=== PATIENT | female | born 1940 | race Caucasian/White ===

== ENCOUNTER → 2017-10-16 | Outpatient (CLI) | payer MEDICARE, BC ==
[~2017-10-16] MED LIST: HYDACE5 PO; HYDCHL25 PO; LEVSOD112 PO; LOSA50 PO; MAGOXI400 PO; MULVITMIND PO; OXYACE5T PO
[2017-10-18 12:10] LABS: HPV Genotype 16 Not Detected (NOTDET); HPV Genotype 18 Not Detected (NOTDET)
[2017-10-18 13:49] LABS: HPV High Risk Other Not Detected (NOTDET)
== END | disposition home or self-care (01) ==
LOC: LAB SHORT 14:38 → LAB 14:38
PROVIDERS: Obstetrics & Gynecology
DX: Z01.419 Encounter for gynecological examination (general) (routine) without abnormal findings (principal)
CPT/HCPCS: 87624; G0123

== ENCOUNTER 2019-05-06 03:09 | Emergency (ER) | payer MEDICARE, BC ==
[~2019-05-06] VITALS: Ht 170.2 cm; Wt 61.2 kg
[2019-05-06] MEDS ORDERED: LATANOPROST 0.7.5 ML BOTHEYES (03:27)
[2019-05-06] MEDS ORDERED: Aspir 8181 MG PO (03:28)
[2019-05-06] MEDS ORDERED: LOSARTAN-HCTZ1 EAC1 PO (03:29)
[2019-05-06] MEDS ORDERED: ACET500 PO (03:29)
[2019-05-06] MEDS ORDERED: ASCO500 PO (03:30)
[2019-05-06] MEDS ORDERED: Garlic1 EAC1 PO (03:30)
[2019-05-06] MEDS ORDERED: ONE-DAILY MULT1 EACH PO (03:30)
[2019-05-06] MEDS ORDERED: Fish Oil Conc1000 MG PO (03:30)
[2019-05-06 03:55] LABS: Calcium, Ionized (POC) 1.18 mmol/L (1.10-1.46); Chloride (POC) 103 mmol/L (98-108); Creatinine (POC) 0.7 mg/dL (0.6-1.0); Glucose (ISTAT POC) 104 mg/dL (70-99); Hemoglobin (POC) 15.3 g/dL (12.0-16.0); Potassium (POC) 3.1 mmol/L (3.5-5.5); Sodium (POC) 143 mmol/L (135-148); Total CO2 (POC) 29 mmol/L (21-32)
== END 2019-05-06 04:30 | disposition home or self-care (01) ==
LOC: ER 03:09
PROVIDERS: Emergency Medicine
DX: R00.2 Palpitations (principal); Z88.8 Allergy status to other drugs, medicaments and biological substances; Z88.6 Allergy status to analgesic agent; Z88.1 Allergy status to other antibiotic agents; Z79.899 Other long term (current) drug therapy; Z79.82 Long term (current) use of aspirin; F17.200 Nicotine dependence, unspecified, uncomplicated; E03.9 Hypothyroidism, unspecified; I10 Essential (primary) hypertension
CPT/HCPCS: 36415; 80047; 85014; 93005; 93010; 99283-25

== ENCOUNTER 2020-04-22 08:44 | Day surgery (SDC) | payer MEDICARE, BC ==
[~2020-04-22] VITALS: Ht 167.6 cm; Wt 64.0 kg
[~2020-04-22 08:44] MED LIST changes: +ACET500 PO; +AMLO5 PO; +ASCO500 PO; +Aspir 8181 MG PO; +Fish Oil Conc1000 MG PO; +Garlic1 EAC1 PO; +LATANOPROST 0.7.5 ML BOTHEYES; +LOSARTAN-HCTZ1 EAC1 PO; +ONE-DAILY MULT1 EACH PO
[2020-04-22] MEDS ORDERED: CLON.1 PO (09:36)
--- NOTE | 2020-04-22 16:23 | NUR ---
SHIFT NOTE PT ARRIVED THIS AFTERNOON WITH A LT CHEST WALL DUAL CHAMBER PACEMAKER PLACED R/T COMPLICATIONS OF SICK SINUS SYNDROME. PT ARRIVES A/O O X3, [facility] DOES HAVE HEARING AIDS BUT STS THEY ARE NOT HELPING A GREAT DEAL. SLING IS PLACED UPON ARRIVAL TO ICU, PT IS INSTRUCTED ON NOT USING HER LT ARM TO ALLOW IT TO REST IN SLING WHICH SHE EXPRESSED AN UNDERSTANDING. PT IS 100% PACED ON MONITOR UPON ARRIVAL. PRESSURE DRESSING REMAINS INTACT AND IN PLACE WITHOUT ANY BLEEDING NOTED. PT WAS TREATED ONCE FOR PAIN TO SURGICAL SITE. PT WAS ALSO TREATED WITH CLONIDINE FOR HTN SHE DID NOT TAKE HER MORNING DOSE
--- NOTE | 2020-04-22 21:15 | NUR ---
ASSUMPTION OF CARE PT AWAKE IN BED, ORIENTED x4, O2 SATURATIONS>90% ON RA, MONITOR SHOWS PACED RHYTHM WITH HR 60'S, BP STABLE. PT DENIES CP, REPORTS PAIN TO R SHOULDER MUCH IMPROVED. PT DENIES GI/ ISSUES AT THIS TIME. PRESSURE DRESSING TO L CHEST WALL C/D/I. PT SBA TO BSC. CALL LIGHT WITHIN REACH, PT USING APPROPRIATELY.
--- NOTE | 2020-04-23 06:52 | NUR ---
SHIFT SUMMARY PT AWAKE FOR MOST OF NIGHT, REMAINS ORIENTED x4, O2 SATURATIONS> 90% ON RA, MONITOR SHOWS PACED RHYTHM, PT REPORTED INCREASED MIDSTERNAL CHEST PAIN/PRESSURE THIS SHIFT, EKG COMPLETED, NEW ORDERS FOR 2mg MORPHINE FROM DR MARIO WITH GOOD EFFECT. SOME HYPOTENSION NOTED WHILE PT SLEEPING. L ARM REMAINED IN SLING T/O NIGHT. PT DENIES GI/ ISSUES.
--- NOTE | 2020-04-23 08:38 | NUR ---
AM NOTE... ASSUMED CARE OF PT APROX 0700, PT IS A&Ox4 AND S/P PACER PLACEMENT. PT IS OCC PACED IN THE 50'S-70'S. PT'S BP HAS BEEN ON THE SOFT SIDE 87/53, PT IS NOT SYMPTOMATIC WITH THESE LOWER BPS. PT WAS SLEEPING VERY HARD WHEN THESE LOWER BPS WERE TAKEN, THIS RN WENT INTO THE ROOM TO ASSESS THE PT, WOKE HER UP AND RECHECKED THE BP, BP RECHECK WAS 130/56. PT'S OTHER VS STABLE. TEMP 98.5, RR 14-18 EVEN AND UNLABORED. NO EDEMA NOTED ON ASSESSMENT. PACER SITE HAS PRESSURE DRESSING C/D/I UNABLE TO ASSESS THE ACTUAL SITE. PT DENIES PAIN AT THIS TIME. L/S CLEAR T/O ON RA. BT PRESENT AND HYPOACTIVE, ABD IS SOFT AND NONTENDER TO PALP. PT SAT UP FOR BREAKFAST IN THE BED TOLERATING THIS WELL. SLING IS IN PLACE TO THE PT'S LEFT ARM. CALL LIGHT IN REACH WILL CONTINUE TO MONITOR.
--- NOTE | 2020-04-23 12:08 | NUR ---
PT D/C HOME... PT D/C HOME WITH DAUGHTER. ORAL AND WRITTEN DISCHARGE PROVIDED TO PT AND DAUGHTER, BOTH VERBALIZED THEIR UNDERSTANDING OF DISCHARGE EDUCATION AND DENIED ANY QUESTIONS. PT'S PACER SITE DRESSING WAS CHANGED BY DR. MARIO, CURRENT DRESSING IS C/D/I. ALL OF PT'S BELONGINGS PACKED AND SENT WITH THE PT. IV REMOVED WNL. PT WAS GIVEN HARD SCRIPT FOR VICODEN BY THIS RN. NO OTHER NEW MEDICATIONS. PT DENIES ANY CHEST PAIN/PRESSURE N/V OR SOB. PT WAS ESCORTED TO HER DAUGHTER'S CAR VIA W/C.
== END 2020-04-23 11:59 | disposition home or self-care (01) ==
LOC: MHTC 08:44 → ICUW 12:30 → MHTC 04-23 11:59
DX: I49.5 Sick sinus syndrome (principal); I10 Essential (primary) hypertension; I47.1 Supraventricular tachycardia; Z88.1 Allergy status to other antibiotic agents; Z88.8 Allergy status to other drugs, medicaments and biological substances; Z88.6 Allergy status to analgesic agent; Z79.899 Other long term (current) drug therapy; E78.5 Hyperlipidemia, unspecified; F17.210 Nicotine dependence, cigarettes, uncomplicated; Z79.82 Long term (current) use of aspirin
CPT/HCPCS: 33208; 71045; 71046; 76937; 93005; 93010; 99152; 99153; A9270-GY; C1781; C1785; C1894; C1898; J0690; J1644; J2250; J2270; J3010; J3370; J7030; J7040

== ENCOUNTER 2022-06-11 12:45 | Emergency (ER) | payer MEDICARE, BC ==
[~2022-06-11] VITALS: Ht 167.6 cm; Wt 59.0 kg
[~2022-06-11 12:45] MED LIST changes: +CLON.1 PO
[2022-06-11 14:24] LABS: BASOPHILS ABSOLUTE AUTO 0.05 K/mm3 (0.00-0.23); BASOPHILS PERCENT AUTO 0 % (0-2); EOSINOPHILS ABSOLUTE AUTO 0.06 K/mm3 (0.00-0.68); EOSINOPHILS PERCENT AUTO 0 % (0-6); Hematocrit 44.8 % (33.0-51.0); Hemoglobin 15.5 g/dL (11.5-16.0); IMMATURE GRAN ABSOLUTE AUTO 0.06 K/mm3 (0.00-0.10); IMMATURE GRAN PERCENT AUTO 0 % (0-1); LYMPHOCYTES ABSOLUTE AUTO 1.47 K/mm3 (0.84-5.20); LYMPHOCYTES PERCENT AUTO 11 % (21-46); MONOCYTES ABSOLUTE AUTO 1.65 K/mm3 (0.16-1.47); MONOCYTES PERCENT AUTO 12 % (4-13); Mean Corpuscular HGB 31.2 pg (26.0-34.0); Mean Corpuscular HGB Conc 34.6 g/dL (31.5-36.5); Mean Corpuscular Volume 90 fL (80-100); NEUTROPHILS ABSOLUTE AUTO 10.49 K/mm3 (1.96-9.15); NEUTROPHILS PERCENT AUTO 76 % (41-73); Platelet Count 223 K/mm3 (150-400); RDW Coefficient Variation 11.8 % (11.7-14.2); RDW Standard Deviation 38.7 fL (35.1-46.3); Red Blood Cell Count 4.97 M/mm3 (3.80-5.20); White Blood Cell Count 13.78 K/mm3 (4.00-11.30)
[2022-06-11 14:32] LABS: Influenza A, PCR NEGATIVE (NEGATIVE); Influenza B, PCR NEGATIVE (NEGATIVE); Resp Syncytial Virus, PCR NEGATIVE (NEGATIVE); SARS-Cov-2 (COVID-19) PCR, MMC NEGATIVE (NEGATIVE)
[2022-06-11 14:41] LABS: Albumin, Blood 3.3 g/dL (3.4-5.0); Albumin/Globulin Ratio 0.8 (0.8-1.8); Bilirubin, Total 0.9 mg/dL (0.1-1.0); Bun/Creatinine Ratio 22.1 (12.0-20.0); Calcium, Blood 9.7 mg/dL (8.5-10.1); Creatinine, Blood 0.54 mg/dL (0.40-1.00); Potassium, Blood 4.3 mmol/L (3.5-5.5); Total Protein, Blood 7.3 g/dL (6.4-8.2)
== END 2022-06-11 18:01 | disposition left against medical advice (07) ==
LOC: ER 12:45
PROVIDERS: Emergency Medicine
DX: R06.02 Shortness of breath (principal); Z53.21 Procedure and treatment not carried out due to patient leaving prior to being seen by health care provider
CPT/HCPCS: 0241U; 36415; 71045; 80053; 85025

== ENCOUNTER 2022-07-03 12:03 | Inpatient (IN) | payer MEDICARE, BC ==
[~2022-07-03] VITALS: Ht 167.6 cm; Wt 55.3 kg
[~2022-07-03 12:03] MED LIST changes: +LATA.005SO BOTHEYES; -LATANOPROST 0.7.5 ML BOTHEYES; +METO25ER PO
[2022-07-03] MEDS ORDERED: AMLODIPINE BES2.5 MG PO (12:20)
[2022-07-03 13:10] LABS: BASOPHILS ABSOLUTE AUTO 0.04 K/mm3 (0.00-0.23); BASOPHILS PERCENT AUTO 0 % (0-2); EOSINOPHILS PERCENT AUTO 0 % (0-6); Hemoglobin 19.2 g/dL (11.5-16.0); IMMATURE GRAN ABSOLUTE AUTO 0.07 K/mm3 (0.00-0.10); IMMATURE GRAN PERCENT AUTO 1 % (0-1); LYMPHOCYTES ABSOLUTE AUTO 1.32 K/mm3 (0.84-5.20); LYMPHOCYTES PERCENT AUTO 12 % (21-46); MONOCYTES ABSOLUTE AUTO 0.45 K/mm3 (0.16-1.47); MONOCYTES PERCENT AUTO 4 % (4-13); Mean Corpuscular HGB 31.2 pg (26.0-34.0); Mean Corpuscular HGB Conc 33.6 g/dL (31.5-36.5); Mean Corpuscular Volume 93 fL (80-100); Mean Platelet Volume 11.3 fL (9.1-12.4); NEUTROPHILS ABSOLUTE AUTO 9.36 K/mm3 (1.96-9.15); NEUTROPHILS PERCENT AUTO 83 % (41-73); Platelet Count 303 K/mm3 (150-400); RDW Coefficient Variation 12.3 % (11.7-14.2); RDW Standard Deviation 42.2 fL (35.1-46.3); Red Blood Cell Count 6.15 M/mm3 (3.80-5.20); White Blood Cell Count 11.24 K/mm3 (4.00-11.30)
[2022-07-03 13:19] LABS: Hematocrit 57.1 % (33.0-51.0)
[2022-07-03 13:47] LABS: Albumin, Blood 4.1 g/dL (3.4-5.0); Albumin/Globulin Ratio 0.9 (0.8-1.8); Bilirubin, Total 0.9 mg/dL (0.1-1.0); Bun/Creatinine Ratio 60.4 (12.0-20.0); Calcium, Blood 11.4 mg/dL (8.5-10.1); Creatinine, Blood 0.99 mg/dL (0.40-1.00); Globulin, Blood 4.6 g/dL (2.2-4.0); Total Protein, Blood 8.7 g/dL (6.4-8.2)
[2022-07-03 14:39] LABS: Source, Urine Straight Cath
[2022-07-03 14:43] LABS: Appearance, Urine Clear (Clear); Bilirubin, Urine Neg (Neg); Blood, Urine 3+ (Neg); Color, Urine Yellow (P-Yellow); Glucose Qualitative, Urine 4+ (Neg); Ketones, Urine 3+ (Neg); Leukocyte Esterase, Urine Neg (Neg); Nitrite, Urine Neg (Neg); Protein, Urine 2+ (Neg); Urobilinogen, Urine NORM (Normal)
[2022-07-03 14:54] LABS: Base Excess Venous -10.7 mmol/L; Bicarbonate Venous 17.3 mmol/L (24.0-30.0); PCO2 Venous 33.1 mmHg (38-42); pH Blood Venous 7.29 (7.34-7.37)
[2022-07-03 14:55] LABS: Bacteria Few /hpf; Squamous Epithelial Cells Few /hpf (Few)
--- NOTE | 2022-07-03 17:30 | NUR ---
ASSUMED CARE: PT ARRIVED FROM ED WITH INSULIN GTT IN PLACE AT 5 UNITS/HR. CBG CHECK SHOWED 450. TITRATED GTT DOWN TO 4 UNITS/HR. PT'S SON AND DAUGHTER AT BEDSIDE AND PROVIDED HEALTH HISTORY AND STATED THEY WILL BRING PILL BOTTLES IN TOMORROW. PT IS CONFUSED AND REQUIRES FREQUENT REORIENTING. BED ALARM ON. NSR AT 68 ON TELE AT THIS TIME. PACER HISTORY WITH SOME PACED BEATS NOTED. NO ACUTE NEEDS AT THIS TIME.
--- NOTE | 2022-07-03 19:00 | NUR ---
ASSUMPTION OF CARE PT ON INSULIN GTT AT 4UNITS/HR AND NS 150ML/HR. SHE WAKENS EASILY TO VERBAL STIMULI, A&OX4 AT THIS TIME. REQUESTS TO REST. BED IN LOWEST POSITION AND CALL LIGHT WITHIN REACH.
--- NOTE | 2022-07-03 20:54 | NUR ---
UPDATE INSULIN GTT TITRATED TO 2UNITS/HR AND FLUIDS CONTINUE TO INFUSE. PT SOMNOLENT. SHE WAKES TO VERBAL STIMULI BUT QUICKLY CLOSES EYES AND DOES NOT FOLLOW COMMANDS. PT UNABLE TO SAFELY TAKE NIGHTTIME DOSE OF PO METOPROLOL. BED IN LOW POSITION, CALL LIGHT WITHIN REACH.
[2022-07-04 03:38] LABS: BASOPHILS ABSOLUTE AUTO 0.03 K/mm3 (0.00-0.23); BASOPHILS PERCENT AUTO 0 % (0-2); EOSINOPHILS ABSOLUTE AUTO 0.01 K/mm3 (0.00-0.68); EOSINOPHILS PERCENT AUTO 0 % (0-6); Hematocrit 44.6 % (33.0-51.0); Hemoglobin 15.4 g/dL (11.5-16.0); IMMATURE GRAN ABSOLUTE AUTO 0.05 K/mm3 (0.00-0.10); IMMATURE GRAN PERCENT AUTO 0 % (0-1); LYMPHOCYTES ABSOLUTE AUTO 2.66 K/mm3 (0.84-5.20); LYMPHOCYTES PERCENT AUTO 23 % (21-46); MONOCYTES ABSOLUTE AUTO 1.19 K/mm3 (0.16-1.47); MONOCYTES PERCENT AUTO 11 % (4-13); Mean Corpuscular HGB Conc 34.5 g/dL (31.5-36.5); Mean Corpuscular Volume 90 fL (80-100); NEUTROPHILS ABSOLUTE AUTO 7.42 K/mm3 (1.96-9.15); NEUTROPHILS PERCENT AUTO 65 % (41-73); Platelet Count 267 K/mm3 (150-400); RDW Coefficient Variation 12.4 % (11.7-14.2); RDW Standard Deviation 40.5 fL (35.1-46.3); Red Blood Cell Count 4.97 M/mm3 (3.80-5.20); White Blood Cell Count 11.36 K/mm3 (4.00-11.30)
[2022-07-04 03:53] LABS: Magnesium, Blood 2.1 mg/dL (1.6-2.4)
[2022-07-04 04:35] LABS: Calcium, Blood 9.3 mg/dL (8.5-10.1); Creatinine, Blood 0.69 mg/dL (0.40-1.00); Potassium, Blood 3.2 mmol/L (3.5-5.5)
--- NOTE | 2022-07-04 06:07 | NUR ---
SHIFT SUMMARY PT ON INSULIN DRIP THROUGHOUT SHIFT. CBG DECREASED <150 AND RECEIVED FIRST DOSE OF GLARGINE. PT SOMNOLENT THROUGH MOST OF SHIFT. SHE WAKENS TO VERBAL STIMULI BUT QUICKLY CLOSES EYES. PO MEDICATIONS HELD DUE TO MENTATION. LUNGS ARE CLEAR THROUGHOUT. SINUS RHTYHM WITH OCCASIONAL PACED BEATS ON MONITOR WTIH RATE IN 60S. SBP 140S-160S. BOWEL TONES HYPOACTIVE, ABDOMEN SOFT. PT DID NOT VOID THIS SHIFT. BLADDER SCAN DONE AT 0530 AND SHOWED <170ML IN BLADDER. PT ENCOURAGED TO SIT ON BEDPAN OR BEDSIDE COMMODE BUT PT REQUESTS TO REST. KCL INFUSING. PT TRANSITIONED TO MED TELE STATUS. BED IN LOWEST POSITION, BED ALARM ON, CALL LIGHT WITHIN REACH.
--- NOTE | 2022-07-04 07:06 | NUR ---
ASSUMED CARE: PT NSR WITH PACED BEATS IN THE 70S. RESTING QUIETLY, OFF INSULIN GTT. NO ACUTE NEEDS OR CONCERNS AT THIS TIME.
[2022-07-04] MEDS ORDERED: HYDCHL25 PO (09:49)
--- NOTE | 2022-07-04 11:36 | NUR ---
CALL TO DR VELAZQUEZ REGARDING D5 GTT ORDER. STATES THAT IT IS TO TREAT PT'S HYPERNATREMIA. ASKED IF EXTRA MONITORING IS NEEDED AND STATED PT RECIEVED LONG ACTING INSULIN THIS AM AND BMP ORDERED FOR THIS AFTERNOON. STEAM TRAP WORKER AWARE OF NEW ORDERS. CALL TO CASE MANAGEMENT TO MAKE THEM AWARE OF NEW DIABETES DIAGNOSIS AND PT'S NEED FOR CBG MONITOR PRIOR TO DC. DIETITIAN CAME IN TO SPEAK WITH PT AND HER SON WELL.
[2022-07-04 14:42] LABS: Bun/Creatinine Ratio 58.4 (12.0-20.0); Creatinine, Blood 0.79 mg/dL (0.40-1.00); Potassium, Blood 4.2 mmol/L (3.5-5.5)
--- NOTE | 2022-07-04 15:00 | NUR ---
CALL TO DR VELAZQUEZ TO RELAY RECENT LAB RESULTS. ORDERED FOLLOW UP LABS FOR THIS AFTERNOON. BACK PADDER AWARE OF RESULTS AND PLAN
--- NOTE | 2022-07-04 16:53 | NUR ---
CALL TO DR VELAZQUEZ TO LET HER KNOW THAT PT'S CBG IS 380 AND WAS TREATED PER HUMALOG SLIDING SCALE. PT STILL HAS D5 GTT RUNNING. INSTRUCTS TO GIVE A DOSE OF LANTUS NOW.
--- NOTE | 2022-07-04 17:56 | NUR ---
SHIFT SUMMARY: PT MEDICAL STATUS, AWAITING BED. NO TELE. VSS. CBG INCREASING WITH D5 GTT PER DR VELAZQUEZ FOR HYPERNATREMIA. MEDICATED WITH EXTRA INSULIN PER DR VELAZQUEZ. FAMILY AT BEDSIDE T/O SHIFT TODAY. ASSISTED TO BSC WITH 1 ASSIST. NO ACUTE NEEDS OR CONCERNS AT THIS TIME.
--- NOTE | 2022-07-04 19:00 | NUR ---
ASSUMPTION OF CARE PT RESTING WITH EYES CLOSED. WAKENS EASILY TO VERBAL STIMULI. PT DENIES NEEDS AT THIS TIME. BED IN LOWEST POSITION, CALL LIGHT WITHIN REACH. SEE SHIFT ASSESSMENT.
[2022-07-04 19:01] LABS: Bun/Creatinine Ratio 55.8 (12.0-20.0); Calcium, Blood 9.8 mg/dL (8.5-10.1); Creatinine, Blood 0.77 mg/dL (0.40-1.00); Potassium, Blood 4.8 mmol/L (3.5-5.5)
[2022-07-05 03:35] LABS: Hematocrit 46.9 % (33.0-51.0); Hemoglobin 16.1 g/dL (11.5-16.0); Mean Corpuscular HGB 31.2 pg (26.0-34.0); Mean Corpuscular HGB Conc 34.3 g/dL (31.5-36.5); Mean Corpuscular Volume 91 fL (80-100); Mean Platelet Volume 11.4 fL (9.1-12.4); Platelet Count 234 K/mm3 (150-400); RDW Coefficient Variation 12.5 % (11.7-14.2); RDW Standard Deviation 41.3 fL (35.1-46.3); Red Blood Cell Count 5.16 M/mm3 (3.80-5.20); White Blood Cell Count 11.57 K/mm3 (4.00-11.30)
[2022-07-05 04:20] LABS: Albumin, Blood 2.9 g/dL (3.4-5.0); Albumin/Globulin Ratio 0.9 (0.8-1.8); Bilirubin, Total 0.9 mg/dL (0.1-1.0); Bun/Creatinine Ratio 41.5 (12.0-20.0); Creatinine, Blood 0.82 mg/dL (0.40-1.00); Globulin, Blood 3.3 g/dL (2.2-4.0); Potassium, Blood 3.8 mmol/L (3.5-5.5)
[2022-07-05 05:27] LABS: Total Protein, Blood 6.2 g/dL (6.4-8.2)
--- NOTE | 2022-07-05 06:36 | NUR ---
SHIFT SUMMARY PT SLEPT THROUGH MOST OF NIGHT. SHE IS A&OX3 WITH PLEASANT AFFECT. LUNGS ARE CLEAR. ON RA WITH SPO2 >95%. BP STABLE THROUGHOUT SHIFT, HR 60S. PT DENIES GI UPSET, BOWEL TONES HYPOACTIVE AND ABDOMEN SOFT. 1 PERSON ASSIST TO BEDSIDE COMMODE. PT HAD 1 INCONTINENT VOID AND 1 MEASURED VOID. CBG DECREASED TO 74. PT HYPERNATREMIC ON AM LABS. ORDER RECEIVED FOR 1L D5 75ML/HR AND REPEAT LABS. BED IN LOWEST POSITION, CALL LIGHT WITHIN REACH.
--- NOTE | 2022-07-05 09:27 | NUR ---
Assumed care of pt at 0700. Report received from Sirisha SCHOFIELD. Pt alert, oriented x 2. Very [place]. Hearing aid battery replaced, and pt able to hear with ease. Nephrology consult ordered by Dr Lemon. Dr Mota in to see patient, orders provided.
[2022-07-05 10:00] LABS: Bun/Creatinine Ratio 39.7 (12.0-20.0); Calcium, Blood 9.8 mg/dL (8.5-10.1); Creatinine, Blood 0.86 mg/dL (0.40-1.00); Potassium, Blood 3.9 mmol/L (3.5-5.5)
[2022-07-05 10:05] LABS: Prolactin 8.8 ng/mL (2.74-19.64)
[2022-07-05 10:09] LABS: Anion Gap 6 mmol/L (6-16); Blood Urea Nitrogen 34 mg/dL (8-24); Bun/Creatinine Ratio 41.2 (12.0-20.0); CO2, Blood 23 mmol/L (21-32); Calcium, Blood 10.1 mg/dL (8.5-10.1); Chloride, Blood 119 mmol/L (98-108); Creatinine, Blood 0.83 mg/dL (0.40-1.00); Glomerular Filtration Rate 70 (60-); Glucose, Blood 265 mg/dL (70-99); Phosphorus, Blood 1.6 mg/dL (2.5-4.9); Potassium, Blood 3.9 mmol/L (3.5-5.5); Sodium, Blood 148 mmol/L (136-145)
--- NOTE | 2022-07-05 17:39 | NUR ---
SUMMARY Neuro: A&O x 2. Answers questions, follows commands, verbalizes needs. Waxing and waning confusion. PERRL. Head CT done today. Musc: Able to mobilize with one person assist and walker. Able to assist with some ADLs. Resp: SpO2 90% or greater RA. Lungs clear t/o. Cardiac: WNL. No telemetry monitoring. Pacemaker to R chest wall. GI: Bowel care meds ordered today as there has been no BM. Tolerating diet well. : Asks staff to use commode when she needs to void urine. Psych: Family in to visit today, updated. Pt seems to be in good spirits and cooperative with staff.
--- NOTE | 2022-07-06 05:03 | NUR ---
Neuro: Patient alert and oriented to self, place and situation, confused about time. [place] with hearing aids at [facility]. Declines headache or dizzyness. Pupils PERRLA and while sclera white, no drainage noted. Resp: Maintaing Saturation at 100% on room air. Lungs clear bilateral lobes. No cough noted. Cardiac: Normatensive, last BP 145/52 (76), HR bradycardic 51, irregular and ranges between 45-90. Pulses strong bilateral radial and pedal. Dependent pitting edema +2 noted bilateral Upper arms. Musc: Generalized weakness, able to ambulate with walker and x1 assist. no contractions or deformities noted. GI: Swallows medications whole, abdominal sounds active in all quadrants, soft, non-distended with no complains of tenderness. : X1 episode of incontinence bladder, and assisted to commode X1 voiding 250ml. Skin: Skin clean, dry and intact. Generalized bruising noted to extrimities and along blood puncture sites. Psychosocial: Encouraged to communnicate emotions, needs and wants. D5% infusing to Left powerglid at 50ml/hr.
[2022-07-06 05:55] LABS: Free Thyroxine 1.34 ng/dL (0.70-1.60); Magnesium, Blood 1.7 mg/dL (1.6-2.4)
[2022-07-06 05:56] LABS: Albumin, Blood 2.4 g/dL (3.4-5.0); Albumin/Globulin Ratio 0.9 (0.8-1.8); Bilirubin, Total 0.7 mg/dL (0.1-1.0); Bun/Creatinine Ratio 31.2 (12.0-20.0); Calcium, Blood 8.5 mg/dL (8.5-10.1); Creatinine, Blood 0.7 mg/dL (0.40-1.00); Globulin, Blood 2.7 g/dL (2.2-4.0); Phosphorus, Blood 1.7 mg/dL (2.5-4.9); Potassium, Blood 3.3 mmol/L (3.5-5.5); Total Protein, Blood 5.1 g/dL (6.4-8.2)
--- NOTE | 2022-07-06 07:15 | NUR ---
Assumed care at 0700. Report received from Iain SCHOFIELD. Pt A&O x 2. Answers questions, follows commands, verbalizes needs. Pleasant and cooperative with care. SpO2 90% or greater RA. Stable BP.
[2022-07-06 09:12] LABS: Hematocrit 45.4 % (33.0-51.0); Hemoglobin 15.4 g/dL (11.5-16.0); Mean Corpuscular HGB 31.1 pg (26.0-34.0); Mean Corpuscular HGB Conc 33.9 g/dL (31.5-36.5); Mean Corpuscular Volume 92 fL (80-100); Platelet Count 174 K/mm3 (150-400); RDW Coefficient Variation 12.6 % (11.7-14.2); RDW Standard Deviation 42.5 fL (35.1-46.3); Red Blood Cell Count 4.95 M/mm3 (3.80-5.20); White Blood Cell Count 8.84 K/mm3 (4.00-11.30)
[2022-07-06] MEDS ORDERED: LEVOBUNOLOL BOTHEYES (13:12)
--- NOTE | 2022-07-06 17:48 | NUR ---
SUMMARY Pt is medical floor status w/o telemetry. Neuro/Musc/Psych: A&O x 2. Answers questions, follows commands, verbalizes needs. Pleasant and cooperative with care. Confused at times, but also seems to have excellent memory and asks questions/makes meaningful comments about medication regimen. Around lunch time, pt's son was in room and she told him that breakfast blood sugar was 176, which was correct. When administering morning meds, she asked if she was receiving clonidine, which is a medication she takes at home. When administering lansoprost eye drops, pt states "I haven't had eye drops since I've been here" and "I usually take those at night; I take a different one in the morning". Both statements are factual. Pt is not able to corretly name factual month or year depsite being reoriented throughout the day. No reports of pain. Requires 1 person assist with gait belt and FWW to mobilize. Bed and chair alarms utilized, however pt has never attempted to mobilize independently. If she wants to sit in chair or use commode, she asks during care rounding. Pt was able to perform AM care with minimal assistance but requires staff assist with toileting, vida care, and attends change. Pt is overall cheerful, pleasant, and cooperative with care. Resp: Lungs clear t/o. SpO2 90% or greater RA. Cardiac: Stable pulse and BP. No telemetry prescribed. GI: 4 bowel movements today. Two incontinent and two continent into commode. Varying textures between pellets and unformed. : Continent of urine today. Asks to use commode to void. Skin: Unchanged from initial assessment.
--- NOTE | 2022-07-06 18:50 | NUR ---
Pt transferred to room 361. Report given to day shift medical floor RN. Chart, medications, belongings transferred patient. Son, Avelino, notified of pt's transfer. States he will notify the pt's daughter. Dr Mota notified of sodium lab results. No new orders.
--- NOTE | 2022-07-06 21:57 | NUR ---
PATIENT TRANSFER FROM ICU 08. ARRIVED VIA W/C. REPORT TAKEN BY DAY RN PRIOR TO SHIFT CHANGE. AXOX 2 AND RESTING IN BED. ON ROOM AIR. CALL LIGHT IN REACH. WCTM.
--- NOTE | 2022-07-07 04:11 | NUR ---
SHIFT SUMMARY PATIENT HAD NO ACUTE CHANGES. ICU TRANSFER. AXOX 2 AND ONE ASSIST W/FWW GB TO [facility] [place]. POWERGLIDE JOEL INTACT. CBG 169. TAKES MEDS WHOLE WITH WATER. VSS/AFEBRILE. SOFT BP'S. DENIES PAIN, SOB, AND N/V. SLEPT MOST OF THE SHIFT. CALL LIGHT IN REACH. BED IN LOWEST POSITION. WILL CONTINUE TO MONITOR UNTIL DAY SHIFT NURSE ASSUMES CARE.
[2022-07-07 04:58] LABS: Hemoglobin 14.6 g/dL (11.5-16.0); Mean Corpuscular HGB 31.1 pg (26.0-34.0); Mean Corpuscular HGB Conc 34.8 g/dL (31.5-36.5); Mean Corpuscular Volume 89 fL (80-100); Mean Platelet Volume 12.3 fL (9.1-12.4); Platelet Count 162 K/mm3 (150-400); RDW Coefficient Variation 12.4 % (11.7-14.2); RDW Standard Deviation 40.7 fL (35.1-46.3); White Blood Cell Count 10.14 K/mm3 (4.00-11.30)
[2022-07-07 05:19] LABS: Magnesium, Blood 1.5 mg/dL (1.6-2.4)
[2022-07-07 05:20] LABS: Albumin, Blood 2.5 g/dL (3.4-5.0); Anion Gap 4 mmol/L (6-16); Blood Urea Nitrogen 15 mg/dL (8-24); Bun/Creatinine Ratio 22.2 (12.0-20.0); CO2, Blood 27 mmol/L (21-32); Calcium, Blood 9.1 mg/dL (8.5-10.1); Chloride, Blood 108 mmol/L (98-108); Creatinine, Blood 0.68 mg/dL (0.40-1.00); Glomerular Filtration Rate 86 (60-); Glucose, Blood 178 mg/dL (70-99); Phosphorus, Blood 3.2 mg/dL (2.5-4.9); Potassium, Blood 3.6 mmol/L (3.5-5.5); Sodium, Blood 139 mmol/L (136-145)
--- NOTE | 2022-07-07 18:37 | NUR ---
SHIFT SUMMARY PT A&O X 3-4. CAN BE FORGETFUL & CONFUSED AT TIMES BUT RE-ORIENTS WELL. VSS. NO ACUTE CHANGES. PARTICIPATED WITH PT TODAY. APPETITE IS MARGINAL. DENIES PAIN OR DISCOMFORT.
--- NOTE | 2022-07-08 04:10 | NUR ---
SHIFT SUMMARY PATIENT HAD NO ACUTE CHANGES OBSERVED. AXOX 3 AND ONE ASSIST W/FWW TO BSC. TAKES MEDICATION WHOLE WITH ASSIST. CBG 239. POWERGLIDE JOEL INTACT AND PIV. VSS/AFEBRILE. DENIES PAIN, SOB, AND N/V. COOPERATIVE WITH CARE. CALL LIGHT IN REACH. BED IN LOWEST POSITION. WILL CONTINUE TO MONITOR UNTIL DAY SHIFT NURSE ASSUMES CARE.
[2022-07-08 05:46] LABS: Hematocrit 39.5 % (33.0-51.0); Hemoglobin 13.6 g/dL (11.5-16.0); Mean Corpuscular HGB 31.2 pg (26.0-34.0); Mean Corpuscular HGB Conc 34.4 g/dL (31.5-36.5); Mean Corpuscular Volume 91 fL (80-100); Mean Platelet Volume 12.4 fL (9.1-12.4); Platelet Count 143 K/mm3 (150-400); RDW Coefficient Variation 12.7 % (11.7-14.2); RDW Standard Deviation 41.6 fL (35.1-46.3); Red Blood Cell Count 4.36 M/mm3 (3.80-5.20); White Blood Cell Count 8.29 K/mm3 (4.00-11.30)
[2022-07-08 06:03] LABS: Albumin, Blood 2.2 g/dL (3.4-5.0); Anion Gap 6 mmol/L (6-16); Blood Urea Nitrogen 17 mg/dL (8-24); Bun/Creatinine Ratio 24.4 (12.0-20.0); CO2, Blood 26 mmol/L (21-32); Calcium, Blood 8.7 mg/dL (8.5-10.1); Chloride, Blood 107 mmol/L (98-108); Glomerular Filtration Rate 86 (60-); Glucose, Blood 235 mg/dL (70-99); Magnesium, Blood 1.7 mg/dL (1.6-2.4); Phosphorus, Blood 2.5 mg/dL (2.5-4.9); Potassium, Blood 4.1 mmol/L (3.5-5.5); Sodium, Blood 139 mmol/L (136-145)
--- NOTE | 2022-07-08 17:53 | NUR ---
SHIFT SUMMARY PT A&O X 4. VSS. NO ACUTE CHANGES TODAY. IS 1 ASSIST W/FWW & GB TO RESTROOM/BSC/CHAIR. MEDICATED ONCE FOR C/O NAUSEA THIS AM WITH GOOD RESOLUTION. BLOOD SUGARS COVERED PER EMAR. NO C/O PAIN OR DISCOMFORT. WILL LIKELY DC TO REHAB/SNF.
--- NOTE | 2022-07-09 04:13 | NUR ---
SHIFT SUMMARY PATIENT HAD NO ACUTE CHANGES OBSERVED. AXOX 4 AND ONE ASSIST W/FWW TO BSC. POWERGLIDE JOEL AND PIV INTACT. CBG 318. VSS/AFEBRILE. DENIES PAIN, SOB, AND N/V. COOPERATIVE WITH CARE. CALL LIGHT IN REACH. BED IN LOWEST POSITION. WILL CONTINUE TO MONITOR UNTIL DAY SHIFT NURSE ASSUMES CARE.
[2022-07-09 05:08] LABS: Hematocrit 37.1 % (33.0-51.0); Hemoglobin 12.6 g/dL (11.5-16.0)
[2022-07-09 06:41] LABS: Albumin, Blood 2.2 g/dL (3.4-5.0); Anion Gap 5 mmol/L (6-16); Blood Urea Nitrogen 16 mg/dL (8-24); Bun/Creatinine Ratio 27.2 (12.0-20.0); CO2, Blood 25 mmol/L (21-32); Calcium, Blood 8.8 mg/dL (8.5-10.1); Chloride, Blood 106 mmol/L (98-108); Creatinine, Blood 0.59 mg/dL (0.40-1.00); Glomerular Filtration Rate 89 (60-); Glucose, Blood 176 mg/dL (70-99); Magnesium, Blood 1.6 mg/dL (1.6-2.4); Phosphorus, Blood 2.6 mg/dL (2.5-4.9); Potassium, Blood 3.9 mmol/L (3.5-5.5); Sodium, Blood 136 mmol/L (136-145)
[2022-07-09 13:20] LABS: SARS-Cov-2 (COVID-19) PCR, MMC NEGATIVE (NEGATIVE)
[2022-07-09] MEDS ORDERED: TIMO.25OPS BOTHEYES (13:39)
[2022-07-09] MEDS ORDERED: LOSA25 PO (13:40)
[2022-07-09] MEDS ORDERED: GLIP2.5ER (13:40)
[2022-07-09] MEDS ORDERED: INSULANI SC (13:42)
--- NOTE | 2022-07-09 15:58 | NUR ---
DISCHARGE SUMMARY PT AxOx3 WITH INTERM CONFUSION/FORGETFULNESS. PT IS PLEASANT AND COOPERATIVE WITH CARE AND REDIRECTABLE WHEN CONFUSED. PT IS DISCHARGING TO SNF AT [facility] TODAY. SON AT BEDSIDE, WHO IS PATIENT'S NORMAL ROCK DUST SPRAYER. OCCUPATIONAL THERAPY WORKED WITH PATIENT THIS SHIFT. MINI MENTAL STATUS EXAM GIVEN- PT SCORED 04/29. VITALS REVIEWED. DISCHARGE PAPERWORK COMPLETED. [facility] ARRIVED AT APPROX 1545 TO SAFELY TRANSPORT PATIENT VIA WC. REPORT CALLED TO CHANDU SEGURA AT [facility].
== END 2022-07-09 15:46 | DRG 637 ==
LOC: ER 12:03 → ICUE 16:03 → ICUW 16:03 → ICUE 17:37 → MEDS 07-06 19:27
PROVIDERS: Internal Medicine; Internal Medicine Nephrology; Student in an Organized Health Care Education/Training Program; ADMIT Internal Medicine
DX: E11.10 Type 2 diabetes mellitus with ketoacidosis without coma (principal); E43 Unspecified severe protein-calorie malnutrition; G92.8 Other toxic encephalopathy; E87.1 Hypo-osmolality and hyponatremia; Z68.1 Body mass index [BMI] 19.9 or less, adult; N17.9 Acute kidney failure, unspecified; E87.0 Hyperosmolality and hypernatremia; B37.0 Candidal stomatitis; E11.65 Type 2 diabetes mellitus with hyperglycemia; E11.00 Type 2 diabetes mellitus with hyperosmolarity without nonketotic hyperglycemic-hyperosmolar coma (NKHHC); E86.0 Dehydration; E11.22 Type 2 diabetes mellitus with diabetic chronic kidney disease; I12.9 Hypertensive chronic kidney disease with stage 1 through stage 4 chronic kidney disease, or unspecified chronic kidney disease; E87.6 Hypokalemia; N18.2 Chronic kidney disease, stage 2 (mild); I49.5 Sick sinus syndrome; E03.9 Hypothyroidism, unspecified; E88.09 Other disorders of plasma-protein metabolism, not elsewhere classified; D63.1 Anemia in chronic kidney disease; H40.9 Unspecified glaucoma; J44.9 Chronic obstructive pulmonary disease, unspecified; D75.1 Secondary polycythemia; F17.210 Nicotine dependence, cigarettes, uncomplicated; Z20.822 Contact with and (suspected) exposure to COVID-19; Z85.42 Personal history of malignant neoplasm of other parts of uterus; Z95.0 Presence of cardiac pacemaker; Z90.710 Acquired absence of both cervix and uterus; Z98.890 Other specified postprocedural states; Z79.899 Other long term (current) drug therapy; Z79.82 Long term (current) use of aspirin; Z79.4 Long term (current) use of insulin; Z88.8 Allergy status to other drugs, medicaments and biological substances; Z88.1 Allergy status to other antibiotic agents
CPT/HCPCS: 36415; 70450; 71046; 80048; 80053; 80069; 81001; 82010; 82024; 82803; 82947; 83036; 83735; 84100; 84146; 84295; 84300; 84439; 84443; 85014; 85018; 85025; 85027; 93005; 93010; 96360; 97110; 97116; 97129; 97162; 97166; 97530; 97535; 99285-25; A9270; C1751; J1650; J1815; J2405; J3475; J3480; J7030; J7060; J7070; U0004

== ENCOUNTER 2022-10-17 09:06 | Day surgery (SDC) | payer MEDICARE, BC ==
[~2022-10-17] VITALS: Ht 167.6 cm; Wt 55.8 kg
[~2022-10-17 09:06] MED LIST changes: +AMLODIPINE BES2.5 MG PO; +GLIP2.5ER; +INSULANI SC; +LEVOBUNOLOL BOTHEYES; +LOSA25 PO; +TIMO.25OPS BOTHEYES
[2022-10-17] MEDS ORDERED: ALOGLIPTIN25 M7 PO (09:54)
[2022-10-17] MEDS ORDERED: METFORMIN HCL500 M3 (09:54)
--- NOTE | 2022-10-17 09:57 | NUR ---
10/17/22 0957 Marcia Barrera AT 0971 PLEDGET [id number]
[2022-10-17 11:44] VITALS: BP 153/75
== END 2022-10-17 12:15 | disposition home or self-care (01) ==
LOC: ORSCSDS 09:06
PROVIDERS: Ophthalmology
PROC: 08DJ3ZZ Extraction of Right Lens, Percutaneous Approach (ICD-10-PCS; principal; 2022-10-17 10:30)
DX: E11.36 Type 2 diabetes mellitus with diabetic cataract (principal); H25.11 Age-related nuclear cataract, right eye; H21.81 Floppy iris syndrome; I10 Essential (primary) hypertension; I48.91 Unspecified atrial fibrillation; Z95.0 Presence of cardiac pacemaker; Z87.891 Personal history of nicotine dependence; E03.9 Hypothyroidism, unspecified; Z79.84 Long term (current) use of oral hypoglycemic drugs; Z79.899 Other long term (current) drug therapy
CPT/HCPCS: 82947; J2001; J2250; J3010; J3301; J7040; V2632

== ENCOUNTER 2022-11-14 09:02 | Day surgery (SDC) | payer MEDICARE, BC ==
[~2022-11-14] VITALS: Ht 167.6 cm; Wt 53.9 kg
[~2022-11-14 09:02] MED LIST changes: +ALOGLIPTIN25 M7 PO; +METFORMIN HCL500 M3
--- NOTE | 2022-11-14 09:58 | NUR ---
11/14/22 0958 Marcia Barrera AT 0946 PLEBASSEMET AT 0947
[2022-11-14 11:19] VITALS: BP 145/85
== END 2022-11-14 11:40 | disposition home or self-care (01) ==
LOC: ORSCSDS 09:02
PROVIDERS: Ophthalmology
PROC: 08RK3JZ Replacement of Left Lens with Synthetic Substitute, Percutaneous Approach (ICD-10-PCS; principal; 2022-11-14 10:30)
DX: E11.36 Type 2 diabetes mellitus with diabetic cataract (principal); H25.12 Age-related nuclear cataract, left eye; H21.81 Floppy iris syndrome; I10 Essential (primary) hypertension; E03.9 Hypothyroidism, unspecified; J44.9 Chronic obstructive pulmonary disease, unspecified; I48.91 Unspecified atrial fibrillation; Z95.0 Presence of cardiac pacemaker; Z79.84 Long term (current) use of oral hypoglycemic drugs; Z79.899 Other long term (current) drug therapy; Z79.82 Long term (current) use of aspirin
CPT/HCPCS: 82947; J2250; J3010; J3301; J7040; V2632

== ENCOUNTER → 2023-01-10 | Outpatient (CLI) | payer MEDICARE, BC ==
[2023-01-10 14:43] LABS: BASOPHILS ABSOLUTE AUTO 0.04 K/mm3 (0.00-0.23); BASOPHILS PERCENT AUTO 1 % (0-2); EOSINOPHILS ABSOLUTE AUTO 0.08 K/mm3 (0.00-0.68); EOSINOPHILS PERCENT AUTO 1 % (0-6); Hematocrit 41.1 % (33.0-51.0); IMMATURE GRAN ABSOLUTE AUTO 0.05 K/mm3 (0.00-0.10); IMMATURE GRAN PERCENT AUTO 1 % (0-1); LYMPHOCYTES ABSOLUTE AUTO 2.13 K/mm3 (0.84-5.20); LYMPHOCYTES PERCENT AUTO 27 % (21-46); MONOCYTES ABSOLUTE AUTO 0.55 K/mm3 (0.16-1.47); MONOCYTES PERCENT AUTO 7 % (4-13); Mean Corpuscular HGB 31.4 pg (26.0-34.0); Mean Corpuscular HGB Conc 34.1 g/dL (31.5-36.5); Mean Corpuscular Volume 92 fL (80-100); Mean Platelet Volume 10.4 fL (9.1-12.4); NEUTROPHILS ABSOLUTE AUTO 5.13 K/mm3 (1.96-9.15); NEUTROPHILS PERCENT AUTO 64 % (41-73); Platelet Count 239 K/mm3 (150-400); RDW Coefficient Variation 12.8 % (11.7-14.2); Red Blood Cell Count 4.46 M/mm3 (3.80-5.20); White Blood Cell Count 7.98 K/mm3 (4.00-11.30)
[2023-01-10 14:59] LABS: Albumin, Blood 3.6 g/dL (3.4-5.0); Albumin/Globulin Ratio 1.1 (0.8-1.8); Bilirubin, Total 0.6 mg/dL (0.1-1.0); Bun/Creatinine Ratio 20.7 (12.0-20.0); Calcium, Blood 9.1 mg/dL (8.5-10.1); Creatinine, Blood 0.82 mg/dL (0.40-1.00); Globulin, Blood 3.3 g/dL (2.2-4.0); Potassium, Blood 3.6 mmol/L (3.5-5.5); Total Protein, Blood 6.9 g/dL (6.4-8.2)
== END ==
LOC: LAB 14:38 → LAB SHORT 14:38
PROVIDERS: Emergency Medicine
DX: R07.9 Chest pain, unspecified (principal)
CPT/HCPCS: 80053; 83880; 84484; 85025

== ENCOUNTER 2023-07-18 12:10 | Emergency (ER) | payer MEDICARE, BC ==
[~2023-07-18] VITALS: Ht 167.6 cm; Wt 52.2 kg
[2023-07-18 13:08] LABS: Source, Urine Straight Cath
[2023-07-18 13:22] LABS: Appearance, Urine Clear (Clear); Bilirubin, Urine Neg (Neg); Blood, Urine 3+ (Neg); Color, Urine Yellow (P-Yellow); Glucose Qualitative, Urine Neg (Neg); Ketones, Urine 2+ (Neg); Leukocyte Esterase, Urine Neg (Neg); Nitrite, Urine Neg (Neg); Protein, Urine 2+ (Neg); Specific Gravity, Urine 1.015 (1.003-1.022); Urobilinogen, Urine NORM (Normal)
[2023-07-18 13:32] LABS: Bacteria Few /hpf; Mucus Light (0-Heavy); Renal Epithelial Rare /hpf (0-Rare); Squamous Epithelial Cells Few /hpf (Few)
[2023-07-18 14:30] LABS: BASOPHILS ABSOLUTE AUTO 0.04 K/mm3 (0.00-0.23); BASOPHILS PERCENT AUTO 1 % (0-2); EOSINOPHILS ABSOLUTE AUTO 0.07 K/mm3 (0.00-0.68); EOSINOPHILS PERCENT AUTO 1 % (0-6); Hematocrit 44.6 % (33.0-51.0); Hemoglobin 15.4 g/dL (11.5-16.0); IMMATURE GRAN ABSOLUTE AUTO 0.03 K/mm3 (0.00-0.10); IMMATURE GRAN PERCENT AUTO 0 % (0-1); LYMPHOCYTES ABSOLUTE AUTO 2.27 K/mm3 (0.84-5.20); LYMPHOCYTES PERCENT AUTO 31 % (21-46); MONOCYTES ABSOLUTE AUTO 0.72 K/mm3 (0.16-1.47); MONOCYTES PERCENT AUTO 10 % (4-13); Mean Corpuscular HGB 31.6 pg (26.0-34.0); Mean Corpuscular HGB Conc 34.5 g/dL (31.5-36.5); Mean Corpuscular Volume 91 fL (80-100); Mean Platelet Volume 10.7 fL (9.1-12.4); NEUTROPHILS ABSOLUTE AUTO 4.28 K/mm3 (1.96-9.15); NEUTROPHILS PERCENT AUTO 58 % (41-73); Platelet Count 217 K/mm3 (150-400); RDW Coefficient Variation 12.8 % (11.7-14.2); RDW Standard Deviation 42.5 fL (35.1-46.3); Red Blood Cell Count 4.88 M/mm3 (3.80-5.20); White Blood Cell Count 7.41 K/mm3 (4.00-11.30)
[2023-07-18 14:56] LABS: Albumin, Blood 3.4 g/dL (3.4-5.0); Bilirubin, Total 0.5 mg/dL (0.1-1.0); Bun/Creatinine Ratio 26.4 (12.0-20.0); Calcium, Blood 9.3 mg/dL (8.5-10.1); Creatinine, Blood 0.72 mg/dL (0.40-1.00); Globulin, Blood 3.4 g/dL (2.2-4.0); Potassium, Blood 3.7 mmol/L (3.5-5.5); Total Protein, Blood 6.8 g/dL (6.4-8.2)
[2023-07-18 16:15] VITALS: BP 184/86
[2023-07-18] MEDS ORDERED: LIDO700A20 TOP (18:30)
[2023-07-18] MEDS ORDERED: MASOPHEN325 M4 PO (18:30)
--- NOTE | 2023-07-18 18:34 | NUR ---
Requested by staff to come and assist with discharge planning. Pt is currently in the ER room #3 with her son at bedside. Plan is to discharge home. Pt and family would like to learn about resources available in the community. They are also interested in home health services. Zeina is an 83 year old with a history of uterine cancer, cervical laminectomy, glaucoma, hypothyroidism, COPD, DM. She had a GLF recently and was having pain and unable to get out of bed today so she was brought into the ER. Her son states she lives in a 5th wheel on some property. Her son and dtr both live nearby and assist with meals, bathing assistance and check in on her. She has steps to get into the 5th wheel. She has a walker, cane and grab bars at home. [facility] about 4[facility]6 weeks ago. Her PCP is John Sanz. She will be going home this evening from the ER. Community resource booklet given to pt's son. Discussed following up with her PCP to have him order HH services. Provided the phone number for [facility] to pt and son as well. Discussed options for in home care, they may be interested in this service. Pt and son both report that she has enough money for food, medications and nursing home. Pt and son thanked this parts data writer for the resource information. Updated bedside RN who will notify ER MD that pt is ready to go home.
== END 2023-07-18 18:45 | disposition home or self-care (01) ==
LOC: ER 12:10
PROVIDERS: Student in an Organized Health Care Education/Training Program
DX: M54.6 Pain in thoracic spine (principal); W18.30XA Fall on same level, unspecified, initial encounter; Z88.8 Allergy status to other drugs, medicaments and biological substances; Z88.6 Allergy status to analgesic agent; Z88.1 Allergy status to other antibiotic agents; Z91.040 Latex allergy status; Z79.899 Other long term (current) drug therapy; Z79.84 Long term (current) use of oral hypoglycemic drugs; Z79.82 Long term (current) use of aspirin; E03.9 Hypothyroidism, unspecified; I10 Essential (primary) hypertension; E11.9 Type 2 diabetes mellitus without complications; J44.9 Chronic obstructive pulmonary disease, unspecified; F17.210 Nicotine dependence, cigarettes, uncomplicated
CPT/HCPCS: 80053; 81001; 85025; 93005; 93010; 99284-25; A9270

== ENCOUNTER → 2023-08-23 | Outpatient (CLI) | payer MEDICARE, BC ==
[~2023-08-23] MED LIST changes: +LIDO700A20 TOP; +MASOPHEN325 M4 PO
[2023-08-23 16:48] LABS: Source, Urine Clean Catch
[2023-08-23 17:46] LABS: Appearance, Urine Cloudy (Clear); Bilirubin, Urine Neg (Neg); Blood, Urine 5+ (Neg); Color, Urine Yellow (P-Yellow); Glucose Qualitative, Urine Neg (Neg); Ketones, Urine Neg (Neg); Leukocyte Esterase, Urine 3+ (Neg); Nitrite, Urine Neg (Neg); Protein, Urine 3+ (Neg); Specific Gravity, Urine 1.015 (1.003-1.022); Urobilinogen, Urine NORM (Normal)
[2023-08-23 17:55] LABS: White Blood Cells, Urine TNTC /hpf (0-5)
[2023-08-23 17:56] LABS: Bacteria Many /hpf; Squamous Epithelial Cells Mod /hpf (Few)
== END | disposition home or self-care (01) ==
LOC: LAB SHORT 16:47
PROVIDERS: Physician Assistant
DX: R35.0 Frequency of micturition (principal)
CPT/HCPCS: 81001; 87086

== ENCOUNTER → 2023-08-27 | Outpatient (CLI) | payer MEDICARE, BC ==
[2023-08-27 18:47] LABS: Source, Urine Clean Catch
[2023-08-27 19:36] LABS: Appearance, Urine Cloudy (Clear); Bilirubin, Urine Neg (Neg); Blood, Urine 5+ (Neg); Color, Urine Amber (P-Yellow); Glucose Qualitative, Urine Neg (Neg); Ketones, Urine 1+ (Neg); Leukocyte Esterase, Urine 3+ (Neg); Nitrite, Urine Neg (Neg); Protein, Urine 4+ (Neg); Urobilinogen, Urine NORM (Normal)
[2023-08-27 19:46] LABS: Bacteria Many /hpf; Red Blood Cells, Urine 50-100 /hpf (0-2); Squamous Epithelial Cells Few /hpf (Few); Transitional Epithelial Cells Few /hpf (0-Rare); White Blood Cells, Urine 50-100 /hpf (0-5)
== END | disposition home or self-care (01) ==
LOC: LAB SHORT 18:43
PROVIDERS: Physician Assistant
DX: R35.0 Frequency of micturition (principal)
CPT/HCPCS: 81001; 87077; 87086; 87186